=== PATIENT | male | born 2005 | race Caucasian/White ===

== ENCOUNTER 2025-01-28 15:15 | Emergency (ER) | payer MEDICAID ==
[~2025-01-28] VITALS: Ht 165.1 cm; Wt 60.0 kg
[2025-01-28 15:32] VITALS: O2SAT 99
[2025-01-28 16:05] VITALS: BP 112/82; PULSE 52; RESP 30; TEMP 36.6; O2SAT 100
== END 2025-01-28 19:17 | disposition left against medical advice (07) ==
LOC: ER 15:15
DX: N48.89 Other specified disorders of penis (principal); Z53.21 Procedure and treatment not carried out due to patient leaving prior to being seen by health care provider
CPT/HCPCS: 99281